=== PATIENT | male | born 1940 | race Caucasian/White ===

== ENCOUNTER 2021-10-24 15:55 | Emergency (ER) | payer MEDICARE, BC, SELFPAY ==
[2021-10-24 16:08] VITALS: BP 124/66; PULSE 90; RESP 16; TEMP 36.6; O2SAT 99
--- NOTE | 2021-10-24 17:31 | ED.MALEGU ---
HPI - Male Genitourinary General Chief complaint: Urogenital-Male Stated complaint: catheter issues Time Seen by Provider: 10/24/21 17:09 Source: patient Mode of arrival: ambulatory Limitations: no limitations History of Present Illness HPI Narrative: This is a 81 year old male that presents to the ER for problems with his Boone catheter. Reports he has had decreased urine output the last couple of days. Reports he has not had hardly any output from his catheter today. Denies fever, vomiting or hematuria. Related Data Allergies Allergy/AdvReac Type Severity Reaction Status Date / Time No Known Allergies Allergy Unverified 03/17/17 09:42 Review of Systems Review of Systems: CONSTITUTIONAL: Denies fever GASTROINTESTINAL: Denies abdominal pain, nausea, vomiting GENITOURINARY: Denies hematuria. All systems reviewed & are unremarkable except as noted in HPI and below PMFSH Past Medical History Medical History (Updated 10/24/21 @ 19:24 by Sue Dewitt PA-C) History of asthma History of BPH History of hyperlipidemia Social History Social History (Updated 10/24/21 @ 17:35 by Sue Dewitt PA-C) Substance use: never Exam Narrative: GENERAL: Well-appearing, well-nourished, and in no acute distress. HEAD: Normocephalic, atraumatic. EYES: EOMI. CHEST: Clear to auscultation. No respiratory distress. No wheezes rales or rhonchi HEART: Regular rate and rhythm. No murmur heard. Normal peripheral pulses. ABDOMEN: Bladder is distended, otherwise abdomen is soft, nontender, normal active bowel sounds. EXTREMITIES: Normal range of motion. No edema. SKIN: Warm, dry, no rash. NEURO: No focal deficits. Alert and oriented x3. PSYCH: Normal mood and affect Course Vital Signs Vital signs: Vital Signs Temperature 97.8 F 10/24/21 16:08 Pulse Rate 90 10/24/21 16:08 Respiratory Rate 16 10/24/21 16:08 Blood Pressure 124/66 10/24/21 16:08 Pulse Oximetry 99 10/24/21 16:08 Oxygen Delivery Room Air 10/24/21 16:08 Temperature 97.8 F 10/24/21 16:08 Pulse Rate 90 10/24/21 16:08 Respiratory Rate 16 10/24/21 16:08 Blood Pressure 124/66 10/24/21 16:08 Pulse Oximetry 99 10/24/21 16:08 Oxygen Delivery Room Air 10/24/21 16:08 MDM - Male Genitourinary MDM Narrative Medical decision making narrative: Patient presents to the ER for problems with his Boone catheter. Catheter had not been draining properly the last couple of days. Boone was replaced with good output. Patient feels much better after. CBC with mild leukocytosis to 13.4. Metabolic panel with creatinine of 1.5. No concerning electrolyte derangements. No recent blood work to compare his kidney function to. UA with evidence of infection. Patient given a dose of Rocephin in the ED. Will be discharged with oral antibiotics. He is to follow-up with his urologist. He was given warnings to return to the ER Lab Data Attestation: I reviewed the patient's lab results. Result diagrams: 10/24/21 17:56 10/24/21 17:56 Labs: Lab Results 10/24/21 10/24/21 10/24/21 Range/Units 17:56 17:56 17:56 WBC 13.4 H (4.5-10.0) K/mm3 RBC 5.56 (4.6-6.20) M/mm3 Hgb 15.2 (14.0-18.0) g/dL Hct 47.2 (42.0-52.0) % MCV 84.9 (80-100) fl MCH 27.3 (26-34) pg MCHC 32.2 (32-36) g/dl RDW 16.0 H (11.5-14.5) % Plt Count 249 (150-375) k/mm3 MPV 9.5 (7.4-10.4) fl Immature Gran % (Auto) 0.5 (0-0.5) % Neut % (Auto) 88.3 H (45.5-73.1) % Lymph % (Auto) 4.6 L (18.3-44.2) % Cross % (Auto) 5.8 (2.6-8.5) % Eos % (Auto) 0.4 (0-4.4) % Baso % (Auto) 0.4 (0.2-1.2) % Lymph # (Auto) 0.62 L (0.9-3.2) K/mm3 Cross # (Auto) 0.8 H (0.1-0.6) K/mm3 Eos # (Auto) 0.1 (0-0.3) K/mm3 Baso # (Auto) 0.1 (0.0-0.1) K/mm3 Abs Immat Gran (auto) 0.07 H (0.00-0.031) K/mm3 Absolute Neuts (auto) 11.8 H (1.3-6.7) K/mm3 Absolute Nucleated RBC 0.0 (0.
[2021-10-24 18:06] LABS: Basophils Absolute Auto 0.1 K/mm3 (0.0-0.1); Basophils Percent Auto 0.4 % (0.2-1.2); Eosinophils Absolute Auto 0.1 K/mm3 (0-0.3); Eosinophils Percent Auto 0.4 % (0-4.4); Hematocrit 47.2 % (42.0-52.0); Hemoglobin 15.2 g/dL (14.0-18.0); Immature Granulocyte Absolute 0.07 K/mm3 (0.00-0.031); Immature Granulocyte Percent A 0.5 % (0-0.5); Lymphocytes Absolute Auto 0.62 K/mm3 (0.9-3.2); Lymphocytes Percent Auto 4.6 % (18.3-44.2); Mean Corpuscular HGB Conc 32.2 g/dl (32-36); Mean Corpuscular Hemoglobin 27.3 pg (26-34); Mean Corpuscular Volume 84.9 fl (80-100); Mean Platelet Volume 9.5 fl (7.4-10.4); Monocytes Absolute Auto 0.8 K/mm3 (0.1-0.6); Monocytes Percent Auto 5.8 % (2.6-8.5); Neutrophils Absolute Auto 11.8 K/mm3 (1.3-6.7); Neutrophils Percent Auto 88.3 % (45.5-73.1); Platelet Count Result 249 k/mm3 (150-375); Red Blood Count 5.56 M/mm3 (4.6-6.20); White Blood Count 13.4 K/mm3 (4.5-10.0)
[2021-10-24 18:16] LABS: Anion Gap 2 mmol/L (8-16); Blood Urea Nitrogen 38 mg/dL (9-20); Calcium 9.2 mg/dL (8.4-10.2); Carbon Dioxide 27 mmol/L (22-30); Chloride 104 mmol/L (98-107); Estimated CRCL calculation 35 ml/min; Estimated Glomerular Filt Rate 45; Glucose 115 mg/dL (65-110); Potassium 4.9 mmol/L (3.4-5.0); Sodium 133 mmol/L (137-145)
[2021-10-24 18:23] LABS: Appearance Urine Cloudy (Clear); Bilirubin Urine Negative (Negative); Blood Urine 3+ (Negative); Color Urine Yellow (Yellow); Glucose Urine UA Negative (Negative); Ketones Urine Negative (Negative); Leukocyte Esterase Ur 3+ LEU/UL (Negative); Nitrate Urine Positive (Negative); Protein Urine 2+ mg/dL (Negative); Specific Grav Ur 1.015 (1.001-1.035); Urobilinogen Urine 0.2 mg/dL (<2.0); pH Urine 8.5 (5.0-9.0)
[2021-10-24 18:39] LABS: Mucus Urine Rare /lpf; RBC Urine >75 /hpf (0-2); WBC Urine >75 /hpf
[2021-10-24 18:49] LABS: Add Urine Microscopic? YES
[2021-10-24] MEDS: LIDOCAINE HCL 1% PF 30 ML VIAL (18:57)
[2021-10-24] MEDS: cefTRIAXone 1 GM VIAL IM (18:57)
[2021-10-24 19:53] VITALS: BP 132/80; PULSE 89; RESP 18; O2SAT 100
== END 2021-10-24 19:56 | disposition home or self-care (01) ==
PROVIDERS: Physician Assistant; Emergency Provider Emergency Medicine
DX: N30.00 Acute cystitis without hematuria (principal); T83.9XXA Unspecified complication of genitourinary prosthetic device, implant and graft, initial encounter; J45.909 Unspecified asthma, uncomplicated; E78.5 Hyperlipidemia, unspecified
CPT/HCPCS: 36415; 51702; 80048; 81001; 85025; 87077; 87086; 87186; 96372; 99283; J0696

== ENCOUNTER 2021-12-26 20:52 | Emergency (ER) | payer MEDICARE, BC, SELFPAY ==
[2021-12-26 21:09] VITALS: BP 140/70; PULSE 100; RESP 16; TEMP 36.3; O2SAT 95
--- NOTE | 2021-12-26 21:42 | ED.MALEGU ---
HPI - Male Genitourinary General Chief complaint: Urogenital-Male Stated complaint: constipation Time Seen by Provider: 12/26/21 21:25 History of Present Illness HPI Narrative: Patient with chronic indwelling Peters catheter presents due to concern that it has not been draining since after lunch today, he is having some suprapubic distention, denies any fevers or chills, nausea or vomiting, or any other symptoms. His Peters has been clogged in the past, he is scheduled for replacement in 3 days. Related Data Allergies Allergy/AdvReac Type Severity Reaction Status Date / Time No Known Allergies Allergy Verified 12/26/21 21:12 Review of Systems Review of Systems: CONST: No fever. HEENT: No sore throat C/V: No chest pain RESP: No shortness of breath GI: Slight suprapubic distention : Non-draining peters catheter M/S: No joint pain. SKIN: No rash. NEURO: [No headache] PSYCH: [No depression] PMFSH Past Medical History Medical History History of asthma History of BPH History of hyperlipidemia Social History Social History Substance use: never Exam Narrative: EXAMINATION OF ORGAN SYSTEMS/BODY AREAS: Constitutional: Vital signs per nursing GENERAL: Appears very mildly uncomfortable HEAD: Normal with no signs of head trauma. EYES: EOMI, conjunctiva normal ENT: Hard of hearing LUNGS: Nonlabored breathing. HEART: [Regular rate and rhythm] ABD: [Soft], [nontender to palpation] EXT: Normal range of motion SKIN: [No rashes or lesions.] NEURO: [Alert and oriented x 3. No gross focal sensory or strength deficits.] PSYCH: Normal affect Course Vital Signs Vital signs: Vital Signs Temperature 97.3 F L 12/26/21 21:09 Pulse Rate 100 12/26/21 21:09 Respiratory Rate 16 12/26/21 21:09 Blood Pressure 140/70 12/26/21 21:09 Pulse Oximetry 95 12/26/21 21:09 Oxygen Delivery Room Air 12/26/21 21:09 Temperature 97.3 F L 12/26/21 21:09 Pulse Rate 89 12/26/21 23:09 Respiratory Rate 16 12/26/21 21:09 Blood Pressure 140/70 12/26/21 21:09 Pulse Oximetry 98 12/26/21 23:09 Oxygen Delivery Room Air 12/26/21 21:09 MDM - Male Genitourinary MDM Narrative Medical decision making narrative: 81yoM p/w clogged peters and some feeling of suprapubic distension without other symptoms, VSS and overall well appearing, bedside bladder scan showing 700+cc and peters is exchanged, afterwards patient feels completely well and no further symptoms, clear drainage. 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 Return precautions provided and stable for dc home. Discharge Plan Discharge Clinical Impression: Acute retention of urine, Malfunction of Peters catheter Patient Disposition: Home, Self-Care Condition: Improved Instructions: Antibiotic Form, Peters Catheter Placement and Care (ED) Additional Instructions: Please follow up with your urologist as scheduled; you can always return for any further issues. Prescriptions: No Action cefdinir 300 mg capsule 300 mg PO Q12H 7 Days Qty: 14 0RF Follow-up/Referrals: PHYSICIAN NOT ON STAFF,NONSTAFF [Primary Care Provider] -
[2021-12-26 23:09] VITALS: PULSE 89; O2SAT 98
== END 2021-12-26 23:12 | disposition home or self-care (01) ==
PROVIDERS: Emergency Provider Emergency Medicine
DX: T83.098A Other mechanical complication of other urinary catheter, initial encounter (principal); J45.909 Unspecified asthma, uncomplicated; E78.5 Hyperlipidemia, unspecified; N40.1 Benign prostatic hyperplasia with lower urinary tract symptoms; R33.8 Other retention of urine; Y84.6 Urinary catheterization as the cause of abnormal reaction of the patient, or of later complication, without mention of misadventure at the time of the procedure
CPT/HCPCS: 51702; 99283

== ENCOUNTER 2023-09-21 21:53 | Emergency (ER) | payer MEDICARE, BC, SELFPAY ==
[2023-09-21 21:54] VITALS: BP 135/85; PULSE 102; RESP 18; TEMP 36.6; O2SAT 100
[2023-09-21 23:57] VITALS: BP 141/75; PULSE 82; RESP 16; O2SAT 98
[2023-09-22 00:21] LABS: Appearance Urine Turbid (Clear); Bacteria Urine 4+ /hpf; Bilirubin Urine Negative (Negative); Blood Urine 2+ (Negative); Color Urine Yellow (Yellow); Glucose Urine UA Negative (Negative); Ketones Urine Negative (Negative); Leukocyte Esterase Ur 3+ LEU/UL (Negative); Need Manual Microscopic Reviewed; Nitrate Urine Positive (Negative); Non Pathogenic Casts >20; Protein Urine 3+ mg/dL (Negative); RBC Urine 51-100 /hpf (0-2); Specific Grav Ur 1.014 (1.001-1.035); Squamous Epithelial Cell Urine None Seen /hpf (Few); Urobilinogen Urine 0.2 mg/dL (<2.0); WBC Urine >100 /hpf (0-3); pH Urine 8.5 (5.0-9.0)
[2023-09-22 00:24] LABS: Add Urine Microscopic? YES
--- NOTE | 2023-09-22 01:06 | ED.MALEGU ---
HPI - Male Genitourinary General Chief complaint: Urogenital-Male Stated complaint: cath problems Time Seen by Provider: 09/22/23 00:48 Source: patient Mode of arrival: ambulatory Limitations: no limitations History of Present Illness HPI Narrative: Patient presents with indwelling catheter not draining. States it was replaced in urology clinic earlier this week though can not recall name of urologist, thinks it is something like Dr Mckeon, possibly first name Gee. He noticed decreased output at 1100. Lives by himself. [birth year] birthday. Denies any fever. Drove himself to the ED. Ambulates on his own though states there is a nurse who comes to the house. Related Data Allergies Allergy/AdvReac Type Severity Reaction Status Date / Time No Known Allergies Allergy Verified 12/26/21 21:12 [facility] Past Medical History Medical History (Updated 09/25/23 @ 01:02 by Selma Sweet MD) History of asthma History of BPH History of hyperlipidemia Indwelling Boone catheter present Social History Social History (Updated 09/25/23 @ 01:03 by Selma Sweet MD) Social History: Notes he has home health care Substance use: never Living arrangements: alone Exam Narrative: GENERAL: Well-appearing, well-nourished, and in no acute distress. HEAD: Normocephalic, atraumatic. EYES: Non injected, non icteric ENT: Nares clear, no rhinorrhea or epistaxis. NECK: Supple. CHEST: Speaking in full sentences. No respiratory distress. HEART: Regular rate and rhythm. . ABDOMEN: Soft, nondistended. EXTREMITIES: Normal range of motion. No edema. : Indwelling Boone catheter (after replacement by RN) draining urine that is thick/cloudy / yellow. SKIN: Warm, dry, no rash. NEURO: No focal deficits. Alert and oriented x3. PSYCH: Normal mood and affect. Course Vital Signs Vital signs: Vital Signs Temperature 97.8 F 09/21/23 21:54 Pulse Rate 102 H 09/21/23 21:54 Respiratory Rate 18 09/21/23 21:54 Blood Pressure 135/85 09/21/23 21:54 Pulse Oximetry 100 09/21/23 21:54 Oxygen Delivery Room Air 09/21/23 21:54 Temperature 97.8 F 09/21/23 21:54 Pulse Rate 92 09/22/23 01:30 Respiratory Rate 16 09/22/23 01:30 Blood Pressure 124/71 09/22/23 01:30 Pulse Oximetry 100 09/22/23 01:30 Oxygen Delivery Room Air 09/21/23 21:54 MDM - Male Genitourinary MDM Narrative Medical decision making narrative: Patient presents with complication of indwelling Boone cathter which started having problems draining at 11:00. States it was changed in urology clinic earlier this week. No fevers. Has home health care. In the ED he is afebrile with VS that show mild tachycardia. RN changes cathter at bedside and it does start draining. Urine is cloudy/yellow. UA concerning for UTI. First dose antibiotic given in the ED. Rest of the course prescribed. Vital signs normalized. Otherwise stable for discharge which is patient's preference rather than staying for observation admission. Lab Data Attestation: I reviewed the patient's lab results. Labs: Lab Results 09/22/23 Range/Units 00:04 Urine Color Yellow (Yellow) Urine Appearance Turbid H (Clear) Urine pH 8.5 (5.0-9.0) Ur Specific Reeves 1.014 (1.001-1.035) Urine Protein 3+ H (Negative) mg/dL Urine Glucose (UA) Negative (Negative) mg/dL Urine Ketones Negative (Negative) mg/dL Ur Blood (Man) 2+ H (Negative) Urine Nitrate Positive H (Negative) Urine Bilirubin Negative (Negative) Urine Urobilinogen 0.2 (<2.0) mg/dL Add Ur Microanalysis Reviewed Leukocyte Esterase Rfl 3+ H (Negative) SHAHRAM/UL Urine RBC 51-100 H (0-2) /hpf Urine WBC >100 H (0-3) /hpf Ur Squamous Epith Cells None seen (Few) /hpf Urine Bacteria 4+ /hpf Urine Casts >20 Discharge Plan Discharge Clinical Impression: Encounter for Boone catheter replacement Catheter-associated urinary tract infection Qualifiers: In
[2023-09-22] MEDS: cefTRIAXone 1 GM VIAL IM (01:17)
[2023-09-22 01:30] VITALS: BP 124/71; PULSE 92; RESP 16; O2SAT 100
--- NOTE | 2023-09-22 01:31 | PC.NURSE ---
Patient states that he only wants leg bag for urinary drainage.
== END 2023-09-22 01:31 | disposition home or self-care (01) ==
PROVIDERS: Emergency Provider Student in an Organized Health Care Education/Training Program
DX: T83.511A Infection and inflammatory reaction due to indwelling urethral catheter, initial encounter (principal); E78.5 Hyperlipidemia, unspecified; J45.909 Unspecified asthma, uncomplicated
CPT/HCPCS: 51702; 81001; 87077; 87086; 87088; 87186; 96372; 99283; J0696